=== PATIENT | female | born 1970 | race American Indian/Alaskan Native ===

== ENCOUNTER 2016-06-24 22:52 | Emergency (ER) | payer MEDICAID ==
[2016-06-24 22:54] VITALS: BMI 27.3
[2016-06-24 22:59] VITALS: BP 130/71; PULSE 109; TEMP 98.1; O2SAT 97
[2016-06-24] MEDS ORDERED: Albuterol-Ipratrop 3 mg / 0.5 (3 ml) UD INH STA (23:33)
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
[2016-06-25 00:14] VITALS: RESP 16
== END 2016-06-25 00:28 ==
LOC: H.ER 22:52
DX: J45.909 Unspecified asthma, uncomplicated (principal); F11.20 Opioid dependence, uncomplicated; T40.2X5A Adverse effect of other opioids, initial encounter